=== PATIENT | male | born 1940 ===

== ENCOUNTER 2016-06-24 10:30 | Outpatient (RCR) | payer OTHER | END 2016-07-12 | disposition home or self-care (01) | LOC: PTY 10:30 | DX: M54.2 Cervicalgia (principal); G89.29 Other chronic pain | CPT/HCPCS: 97110; 97140; 97162; G0283 ==

== ENCOUNTER 2017-04-11 08:30 | Outpatient (RCR) | payer OTHER | END 2017-04-13 | disposition home or self-care (01) | LOC: PTY 08:30 | DX: R26.9 Unspecified abnormalities of gait and mobility (principal); Z91.81 History of falling | CPT/HCPCS: 97110; 97161; G0283 ==

== ENCOUNTER 2017-05-05 09:00 | Outpatient (RCR) | payer OTHER | END 2017-05-14 | disposition home or self-care (01) | LOC: PTY 09:00 | DX: R26.89 Other abnormalities of gait and mobility (principal); Z91.81 History of falling | CPT/HCPCS: 97110; 97140; G0283 ==

== ENCOUNTER 2017-05-29 08:50 | Outpatient (RCR) | payer OTHER | END 2017-06-14 | disposition home or self-care (01) | LOC: PTY 08:50 | DX: R26.89 Other abnormalities of gait and mobility (principal); Z91.81 History of falling | CPT/HCPCS: 97110; G0283 ==

== ENCOUNTER 2017-06-19 09:33 | Outpatient (RCR) | payer OTHER | END 2017-07-12 | disposition home or self-care (01) | LOC: PTY 09:33 | DX: R26.89 Other abnormalities of gait and mobility (principal); Z91.81 History of falling; M25.561 Pain in right knee | CPT/HCPCS: 97110; 97140; G0283 ==

== ENCOUNTER 2017-07-19 09:00 | Outpatient (RCR) | payer OTHER | END 2017-08-12 | disposition home or self-care (01) | LOC: PTY 09:00 | DX: R26.89 Other abnormalities of gait and mobility (principal); Z91.81 History of falling; M25.561 Pain in right knee | CPT/HCPCS: 97110; G0283 ==

== ENCOUNTER 2017-09-19 10:50 | Outpatient (RCR) | payer OTHER | END 2017-10-12 | disposition home or self-care (01) | LOC: PTY 10:50 | DX: R29.6 Repeated falls (principal); M25.561 Pain in right knee | CPT/HCPCS: 97110; G0283 ==

== ENCOUNTER 2017-10-17 10:45 | Outpatient (RCR) | payer OTHER | END 2017-11-11 | disposition home or self-care (01) | LOC: PTY 10:45 | DX: R29.6 Repeated falls (principal); M25.561 Pain in right knee ==